=== PATIENT | female | born 1980 | race Caucasian/White ===

== ENCOUNTER 2018-06-18 17:55 | Emergency (ER) | payer MEDICAID ==
[2018-06-18 18:05] VITALS: BP 112/75
--- NOTE | 2018-06-18 18:28 | XRAY Report ---
Reason: knee pain Procedure Date: 06/18/2018 Accession Number: [id number] / [id number] Procedure: XR - Knee 3 View RT CPT Code: FULL RESULT: EXAM: RIGHT KNEE RADIOGRAPHY EXAM DATE: 06/18/2018 06:21 PM. CLINICAL HISTORY: Knee pain. Twisting fall. Pain worse when standing. COMPARISON: None. TECHNIQUE: 3 views. FINDINGS: Bones: No acute fracture or bony lesion. Degenerative spurring. Joints: Moderate right knee effusion. No significant joint space narrowing. No dislocation. Soft Tissues: Soft tissue edema. IMPRESSION: 1. No acute osseous abnormalities. 2. Right knee effusion. RADIA
[2018-06-18] MEDS ORDERED: NAPROXEN 250 MG TABLET PO STA (18:36)
--- NOTE | 2018-06-18 18:39 | ED Physician Documentation ---
PD HPI LOWER EXT INJURY - Stated complaint Stated Complaint: RIGHT KNEE PX - Chief complaint Chief Complaint: Ext Problem - History obtained from History obtained from: Patient - History of Present Illness PD HPI LOW EXT INJURY LOCATION: Right, Knee Type of injury: Twist Where injury occurred: Home Timing - onset: How many days ago (4) Timing - details: Abrupt onset Severity Comments: moderate Improved by: Rest, Immobilization Worsened by: Moving Associated symptoms: Swelling. No: Numbness, Tingling, Discolored Contributing factors: No: Anticoagulated Recently seen: Not recently seen Review of Systems Constitutional: denies: Fever Eyes: denies: Discharge Cardiac: denies: Chest pain / pressure GI: denies: Abdominal Pain Musculoskeletal: reports: Extremity pain. denies: Neck pain Neurologic: denies: Headache PD PAST MEDICAL HISTORY - Past Medical History Past Medical History: No Cardiovascular: None Respiratory: None Neuro: None Endocrine/Autoimmune: None GI: None MOSAIC LAYER: None : None HEENT: None Psych: None Musculoskeletal: None Derm: None - Past Surgical History Past Surgical History: Yes /MOSAIC LAYER: Dilation and currettage - Present Medications Home Medications: Ambulatory Orders Medication Instructions Recorded Confirmed Citalopram [CeleXA] 40 mg PO DAILY 06/18/18 06/18/18 buPROPion [Wellbutrin Sr] 150 mg PO BID 06/18/18 06/18/18 - Allergies Allergies/Adverse Reactions: Allergies Allergy/AdvReac Type Severity Reaction Status Date / Time No Known Drug Allergies Allergy Verified 06/18/18 18:00 - Social History Does the pt smoke?: Yes Smoking Status: Current every day smoker Does the pt drink ETOH?: No Does the pt have substance abuse?: No - Immunizations Immunizations are current?: Yes - POLST Patient has POLST: No PD ED PE NORMAL - General General: Alert and oriented X 3, No acute distress - HEENT HEENT: Atraumatic, PERRL, EOMI, Ears normal - Derm Derm: Normal color - Extremities Extremities: No deformity. No: No tenderness to palpate (The patient has tenderness to palpation of the knee, there is some mild swelling, a full exam is limited secondary to the acute pain and swelling. The patient has a normal dorsalis pedis pulse. There is no crepitus or evidence of bony abnormality. No other area of injury), Normal ROM s pain - Neuro Neuro: Alert and oriented X 3, Normal speech Results - Vitals Vitals: Vital Signs - 24 hr 06/18/18 17:58 Temperature 36.5 C Heart Rate 65 Respiratory 18 Rate Blood Pressure 112/75 O2 Saturation 99 Oxygen O2 Source Room air - Rads (name of study) XR knee Radiology: Final report received, See rad report (1. No acute osseous abnormalities. +effusion) PD MEDICAL DECISION MAKING - ED course ED course: No acute finding on x-ray that would necessitate emergent consultation or transfer. The exam was limited secondary to the swelling and acute pain. I discussed the patient the possibility of a ligamentous or meniscus injury and advised follow-up with orthopedics for recheck once the pain and swelling has decreased. The patient understands and agrees. I discussed warning signs and recommended returning for any worsening or any concerns. Departure - Departure Disposition: 01 Home, Self Care Clinical Impression: Sprain, knee Qualifiers: Encounter type: initial encounter Involved ligament of knee: unspecified ligament Laterality: right Qualified Code(s): S83.91XA - Sprain of unspecified site of right knee, initial encounter Condition: Good Instructions: ED Sprain Knee Follow-Up: [facility] [Provider Group] - Within 1 week (Call to schedule follow-up appointment for 1-2 weeks for recheck and reevaluation of your knee) Comments: Return to the emergency department for any worsening or any concerns
== END 2018-06-18 19:02 | disposition home or self-care (01) ==
LOC: ED 17:55
DX: S83.91XA Sprain of unspecified site of right knee, initial encounter (principal); X50.1XXA Overexertion from prolonged static or awkward postures, initial encounter; W01.0XXA Fall on same level from slipping, tripping and stumbling without subsequent striking against object, initial encounter; Y92.009 Unspecified place in unspecified non-institutional (private) residence as the place of occurrence of the external cause; F17.200 Nicotine dependence, unspecified, uncomplicated
CPT/HCPCS: 73562; 99283; A9270

== ENCOUNTER 2018-08-23 16:20 | Emergency (ER) | payer MEDICAID ==
--- NOTE | 2018-08-23 19:41 | ED Physician Documentation ---
PD HPI BACK PAIN - Stated complaint Stated Complaint: BACK PAIN - Chief complaint Chief Complaint: Back Pain - History obtained from History obtained from: Patient - History of Present Illness Timing - onset: How many hours ago (few), Today Timing - duration: Hours Timing - details: Abrupt onset (just got up from sitting and had onset of left then both sides back pain. Hurts with movement. No radiation to abd. Better with holding still.), Still present Location: Lower, Right, Left Quality: Pain, Spasm Associated symptoms: No: Fever, Weakness, Numbness, Incontinent of urine Improves with: Rest (but still hurts), Position Worsened by: Movement, Twisting Contributing factors: Twisting Similar symptoms before: No diagnosis Review of Systems Constitutional: denies: Fever, Chills Nose: denies: Rhinorrhea / runny nose, Congestion Throat: denies: Sore throat Respiratory: denies: Cough GI: denies: Abdominal Pain, Nausea, Vomiting, Diarrhea Skin: denies: Rash, Lesions Musculoskeletal: reports: Back pain. denies: Neck pain Neurologic: denies: Focal weakness, Numbness PD PAST MEDICAL HISTORY - Past Medical History Past Medical History: No Cardiovascular: None Respiratory: None Neuro: None Endocrine/Autoimmune: None GI: None EMR SPECIALIST: None : None HEENT: None Psych: None Musculoskeletal: None Derm: None - Past Surgical History Past Surgical History: Yes /EMR SPECIALIST: Dilation and currettage - Present Medications Home Medications: Ambulatory Orders Medication Instructions Recorded Confirmed Dexamethasone [Decadron] 4 mg PO DAILY #5 tablet 08/23/18 Methocarbamol [Robaxin] 500 mg PO Q6H PRN #30 tablet 08/23/18 Naproxen 500 mg PO BID #20 tablet 08/23/18 Oxycodone HCl/Acetaminophen 1 - 2 each PO Q6H PRN #14 tablet 08/23/18 [Percocet 5-325 mg Tablet] - Allergies Allergies/Adverse Reactions: Allergies Allergy/AdvReac Type Severity Reaction Status Date / Time No Known Drug Allergies Allergy Verified 08/23/18 16:29 - Social History Does the pt smoke?: Yes Smoking Status: Current every day smoker Does the pt drink ETOH?: No Does the pt have substance abuse?: No - Immunizations Immunizations are current?: Yes - POLST Patient has POLST: No PD ED PE NORMAL - Vitals Vital signs reviewed: Yes - General General: Alert and oriented X 3, Well developed/nourished, Other (appears in pain, and guarding ROM. ) - Neck Neck: Supple, no meningeal sign, No adenopathy - Cardiac Cardiac: RRR, No murmur - Respiratory Respiratory: Clear bilaterally - Abdomen Abdomen: Soft, Non tender - Back Back: No spinal TTP, Other (tender in lumbar muscles, with some firm spasm. No vertebral tenderness. Not tender as high as CVA area. Abd soft and not tender. ) Results - Vitals Vitals: Oxygen O2 Source Room air PD MEDICAL DECISION MAKING - ED course Complexity details: re-evaluated patient (improved quite well after meds. ), considered differential (seems muscular. Does not seem kidney stone. Abd not tender. Will treat as muscular with spasm. ) Departure - Departure Disposition: 01 Home, Self Care Clinical Impression: Back pain Qualifiers: Back pain location: low back pain Chronicity: acute Back pain laterality: bilateral Sciatica presence: without sciatica Qualified Code(s): M54.5 - Low back pain Condition: Stable Record reviewed to determine appropriate education?: Yes Instructions: ED Spasm Back No Trauma Prescriptions: Dexamethasone [Decadron] 4 mg PO DAILY #5 tablet Methocarbamol [Robaxin] 500 mg PO Q6H PRN #30 tablet PRN Reason: Spasms Naproxen 500 mg PO BID #20 tablet Oxycodone HCl/Acetaminophen [Percocet 5-325 mg Tablet] 1 - 2 each PO Q6H PRN #14 tablet PRN Reason: pain Comments: Heat and gentle stretching for the low back muscles. Physical modalities such as chiropractic or massage are okay for this in conjunction with the medications. Use some anti-inflammatories such as naproxen or ibuprofen twice daily. Decadron steroid anti-inflammatory as well for 5 days. Cyclobenzaprine or methocarbamol muscle relaxants as needed for spasming and stiffness. Add Tylenol or oxycodone if needed for pain. Recheck if not improved over the next several days. You may need a day or 2 off work based on symptoms. Forms: Activity restrictions Discharge Date/Time: 08/23/18 20:57
[2018-08-23] MEDS ORDERED: HYDROmorphone 1 MG/ML CARPUJECT IM STA (19:51)
[2018-08-23] MEDS ORDERED: METHOCARBAMOL 500 MG TABLET PO STA (19:52)
[2018-08-23] MEDS ORDERED: DEXAMETHASONE 10 MG/ML VIAL PO STA (19:52)
[2018-08-23] MEDS ORDERED: KETOROLAC 30 MG/ML VIAL IM STA (19:52)
[2018-08-23] MEDS ORDERED: CHERRY SYRUP 10 ML UDC PO ONE (20:09)
[2018-08-23] MEDS ORDERED: CYCLOBENZAPRINE 10 MG Prepack 2 PO PRN (20:42)
[2018-08-23] MEDS ORDERED: oxyCODONE/ACET 5/325 Prepack 4 PO STA (20:42)
[2018-08-23 20:55] VITALS: BP 114/69
== END 2018-08-23 20:57 | disposition home or self-care (01) ==
LOC: ED 16:20
DX: M54.5 Low back pain (principal); F17.200 Nicotine dependence, unspecified, uncomplicated
CPT/HCPCS: 96372; 99283; A9270; J1170

== ENCOUNTER 2018-08-30 12:47 | Emergency (ER) | payer MEDICAID ==
[2018-08-30 13:07] VITALS: BP 124/81
--- NOTE | 2018-08-30 13:28 | ED Physician Documentation ---
History of Present Illness - Stated complaint Stated Complaint: LT EYE SWOLLEN - Chief complaint Chief Complaint: Heent - History obtained from History obtained from: Patient - History of Present Illness Timing: Last night - Additonal information Additional information: Patient is a previously healthy 38-year-old female presenting with left upper eyelid swelling, erythema, and purulent discharge worsening over the past few hours, but starting last night. Patient does not wear contacts, but wears glasses only. Patient denies known trauma, inciting incident, retained foreign body sensation or other exposure. Patient reports slight decrease in vision due to eyelid swelling, but no eye pain. Patient also denies conjunctival irritation or changes. Patient also complains of persistent low back pain, which she was seen for in the ED several days ago. Patient denies new injuries or symptoms except for discomfort. No new rashes, neurological changes, or other concerns. Patient has been taking medications as prescribed at home for this issue. No other improving or worsening factors noted to her symptoms. Review of Systems Eyes: reports: Decreased vision, Discharge PD PAST MEDICAL HISTORY - Past Medical History Cardiovascular: None Respiratory: None Neuro: None Endocrine/Autoimmune: None GI: None SEWING MACHINE ADJUSTER: None : None HEENT: None Psych: None Musculoskeletal: None Derm: None - Past Surgical History Past Surgical History: Yes /SEWING MACHINE ADJUSTER: Dilation and currettage - Present Medications Home Medications: Ambulatory Orders Medication Instructions Recorded Confirmed Dexamethasone [Decadron] 4 mg PO DAILY #5 tablet 08/23/18 Methocarbamol [Robaxin] 500 mg PO Q6H PRN #30 tablet 08/23/18 Naproxen 500 mg PO BID #20 tablet 08/23/18 Oxycodone HCl/Acetaminophen 1 - 2 each PO Q6H PRN #14 tablet 08/23/18 [Percocet 5-325 mg Tablet] Erythromycin Base [Erythromycin 3.5 gm OP QID 14 Days #1 oint...g. 08/30/18 Ophthalmic Ointment] - Allergies Allergies/Adverse Reactions: Allergies Allergy/AdvReac Type Severity Reaction Status Date / Time No Known Drug Allergies Allergy Verified 08/30/18 13:02 - Social History Does the pt smoke?: Yes Smoking Status: Current every day smoker Does the pt drink ETOH?: No Does the pt have substance abuse?: No - Immunizations Immunizations are current?: Yes - POLST Patient has POLST: No PD ED PE NORMAL - General General: Alert and oriented X 3, No acute distress, Well developed/nourished - HEENT HEENT: Atraumatic, PERRL (Gross visual acuity intact. No nystagmus. No conjunctival injection or hematoma.), EOMI, Moist mucous membranes, Pharynx benign, Other (Edema and slight erythema to left upper eyelid only with purulent discharge from the upper eyelid duct) - Respiratory Respiratory: No respiratory distress - Back Back: No spinal TTP, Other (Extremely mild lumbar paraspinal muscle tenderness and spasm present) - Derm Derm: Normal color, Warm and dry, No rash - Extremities Extremities: No deformity - Neuro Neuro: Alert and oriented X 3, No motor deficit, No sensory deficit - Psych Psych: Normal mood, Normal affect Results - Vitals Vitals: Vital Signs - 24 hr 08/30/18 13:02 Temperature 36.6 C Heart Rate 87 Respiratory 16 Rate Blood Pressure 124/81 H O2 Saturation 100 Oxygen O2 Source Room air PD MEDICAL DECISION MAKING - ED course Complexity details: reviewed old records, considered differential, d/w patient, d/w family ED course: Most concerning for a blepharitis of left eye. Do not find evidence of trauma or subconjunctival hemorrhage or hyphema present. Do not have high suspicion for. Post septal cellulitis, as well as low suspicion for periorbital cellulitis given appearance and symptomatology. No signs of conjunctivitis, iritis, uveitis, glaucoma, or other globe injury. Discussed use of antibiotics for her likely blepharitis, as well as supportive cares. Patient was seen here recently for low back strain and continues to have some discomfort. Do not find evidence of new injury or other concerns I would raise high suspicion for new spine, spinal cord, cauda equina, sciatica complication. Offered Toradol, which was provided in ED. Otherwise, patient can continue supportive cares at home. Discussed return symptoms and appropriate follow-up otherwise. Patient voiced understanding and is comfortable with discharge plan. Departure - Departure Disposition: 01 Home, Self Care Clinical Impression: Blepharitis Qualifiers: Blepharitis type: unspecified type Laterality: left Eyelid: upper Qualified Code(s): H01.004 - Unspecified blepharitis left upper eyelid Condition: Good Instructions: Blepharitis Tx Med and FU Follow-Up: your,doctor [Other] - Within 3 Days Prescriptions: Erythromycin Base [Erythromycin Ophthalmic Ointment] 3.5 gm OP QID 14 Days #1 oint...g. Comments: May continue to use previously prescribed medications for low back pain. Also recommend heat application, mild stretching, massage to this area. In regards to your eye, please use antibiotic ointment as prescribed. Additionally, recommend cool compresses and sleeping slightly propped up. Ibuprofen/Tylenol will also address this inflammation. Follow-up with primary care physician in the next 2-3 days return to ED sooner if expands worsening symptoms or other concerns.
[2018-08-30] MEDS ORDERED: KETOROLAC 60 MG/2 ML VIAL IM STA (13:45)
== END 2018-08-30 14:12 | disposition home or self-care (01) ==
LOC: ED 12:47
DX: H01.004 Unspecified blepharitis left upper eyelid (principal); F17.200 Nicotine dependence, unspecified, uncomplicated
CPT/HCPCS: 96372; 99283

== ENCOUNTER 2020-05-27 13:07 | Emergency (ER) | payer MEDICAID ==
[2020-05-27 13:45] LABS: BASOPHILS # (AUTO) 0.1 10^3/uL (0.0-0.1); BASOPHILS % (AUTO) 0.4 %; EOSINOPHILS # (AUTO) 0.1 10^3/uL (0.0-0.7); EOSINOPHILS % (AUTO) 0.4 %; HGB - HEMOGLOBIN 14.5 g/dL (12.0-16.0); LYMPHOCYTES # (AUTO) 1.9 10^3/uL (1.5-3.5); LYMPHOCYTES % (AUTO) 13.6 %; MEAN CORPUSCULAR HEMOGLOBIN 28.5 pg (27.0-31.0); MEAN CORPUSCULAR HGB CONC 33.5 g/dL (32.0-36.0); MEAN CORPUSCULAR VOLUME 85.2 fL (81.0-99.0); MONOCYTES # (AUTO) 0.8 10^3/uL (0.0-1.0); MONOCYTES % (AUTO) 5.5 %; NEUTROPHILS # (AUTO) 10.9 10^3/uL (1.5-6.6); NEUTROPHILS % (AUTO) 79.7 %; PLT - PLATELET COUNT 268 10^3/uL (130-450); RED BLOOD COUNT 5.08 10^6/uL (4.20-5.40); RED CELL DISTRIBUTION WIDTH 12.3 % (12.0-15.0); WHITE BLOOD COUNT 13.7 x10^3/uL (4.8-10.8)
--- NOTE | 2020-05-27 13:48 | XRAY Report ---
PROCEDURE: Chest 1 View X-Ray INDICATIONS: Chest Pain TECHNIQUE: One view of the chest was acquired. COMPARISON: None. FINDINGS: Surgical changes and devices: None. Lungs and pleura: No pleural effusions or pneumothorax. Lungs are clear. Mediastinum: Mediastinal contours appear normal. Heart size is normal. Bones and chest wall: No suspicious bony lesions. Overlying soft tissues appear unremarkable. IMPRESSION: No acute disease Reviewed by: Stevie Brink MD on 05/27/2020 1:46 PM PST Approved by: Stevie Brink MD on 05/27/2020 1:46 PM PST Station ID: [id number]
[2020-05-27 14:04] LABS: ALBUMIN/GLOBULIN RATIO 1.6 (1.0-2.2); BILIRUBIN,TOTAL 0.9 mg/dL (0.2-1.0); CALCIUM 9.6 mg/dL (8.5-10.3); CREATININE 0.6 mg/dL (0.4-1.0); TOTAL PROTEIN 8.2 g/dL (6.7-8.2)
--- NOTE | 2020-05-27 14:05 | ED Physician Documentation ---
PD HPI CHEST PAIN - Stated complaint Stated Complaint: CHEST PX - Chief complaint Chief Complaint: Cardiac - History obtained from History obtained from: Patient - History of Present Illness Timing - onset: Today Timing - onset during: Rest Timing - duration: Hours Timing - details: Abrupt onset, Still present Quality: Sharp, Pain Location: Substernal Radiation: No: Jaw, Neck, Back, Abdominal, Left upper extremity, Right upper extremity Improved by: Nothing Worsened by: Inspiration, Movement, Palpation Associated symptoms: Shortness of air, Diaphoresis Similar symptoms before: Diagnosis (panic attack) Recently seen: Not recently seen - Additional information Additional information: 39-year-old female with a history of anxiety with sitting on her couch today when she developed sudden onset of substernal chest pain without radiation she did get some some dyspnea associated with this as well as some diaphoresis. She felt like it was difficult to get a full deep breath. She denies anything to be acutely anxious about but does have a history of anxiety and panic attacks. She denies any recent illness. She denies any specific stress in her life states that she and her and her son are living in an apartment and they have recently obtained a cat which they are not supposed to have. She states maybe she is looking over her shoulder. Review of Systems Constitutional: denies: Fever Nose: denies: Congestion Throat: denies: Sore throat Cardiac: reports: Chest pain / pressure. denies: Palpitations, Pedal edema, Calf pain Respiratory: reports: Dyspnea. denies: Cough, Wheezing GI: denies: Abdominal Pain, Nausea, Vomiting : denies: Dysuria, Frequency Neurologic: denies: Generalized weakness, Focal weakness, Numbness Psychiatric: reports: Anxiety PD PAST MEDICAL HISTORY - Past Medical History Cardiovascular: None Respiratory: None Neuro: None Endocrine/Autoimmune: None GI: None ALARM FIELD TECHNICIAN: None : None HEENT: None Psych: None Musculoskeletal: None Derm: None - Past Surgical History Past Surgical History: Yes /ALARM FIELD TECHNICIAN: Dilation and currettage - Present Medications Home Medications: Ambulatory Orders Medication Instructions Recorded Confirmed Alprazolam [Xanax] 0.5 - 1 mg PO Q8HR PRN #12 tablet 05/27/20 Meloxicam [Mobic] 7.5 mg PO BID PRN #20 tablet 05/27/20 - Allergies Allergies/Adverse Reactions: Allergies Allergy/AdvReac Type Severity Reaction Status Date / Time No Known Drug Allergies Allergy Verified 05/27/20 13:19 - Social History Does the pt smoke?: Yes Smoking Status: Current every day smoker Does the pt drink ETOH?: No Does the pt have substance abuse?: No - Immunizations Immunizations are current?: Yes - POLST Patient has POLST: No PD ED PE NORMAL - Vitals Vital signs reviewed: Yes (Tachypneic and hypertensive) - General General: Alert and oriented X 3, Well developed/nourished, Other (Appears anxious and is hyperventilating) - HEENT HEENT: Atraumatic, PERRL, EOMI - Neck Neck: Supple, no meningeal sign, No bony TTP - Cardiac Cardiac: RRR, No murmur - Respiratory Respiratory: No respiratory distress, Clear bilaterally, Other (Parasternal chest wall tenderness bilaterally reproduces the pain the patient is experiencing.) - Abdomen Abdomen: Soft, Non tender - Back Back: No CVA TTP, No spinal TTP - Derm Derm: Normal color, Warm and dry, No rash - Extremities Extremities: No deformity, No edema - Neuro Neuro: Alert and oriented X 3, ceo 2-12 intact, No motor deficit, No sensory deficit, Normal speech Eye Opening: Spontaneous Motor: Obeys Commands Verbal: Oriented GCS Score: 15 - Psych Psych: Other (Mood is anxious affect is sad) Results - Vitals Vitals: Vital Signs - 24 hr 05/27/20 13:19 Temperature 36.8 C Heart Rate 80 Respiratory 24 Rate Blood Pressure 142/86 H O2 Saturation 100 Oxygen O2 Source Room air - EKG (time done) 1320 Rate: Rate (enter#) (78) Rhythm: NSR Intervals: Prolonged QT Computer interpretation: Agree with computer - Labs Labs: Laboratory Tests 05/27/20 05/27/20 05/27/20 13:39 13:39 13:39 WBC 13.7 H RBC 5.08 Hgb 14.5 Hct 43.3 MCV 85.2 MCH 28.5 MCHC 33.5 RDW 12.3 Plt Count 268 MPV 9.0 Neut # (Auto) 10.9 H Lymph # (Auto) 1.9 [place] # (Auto) 0.8 Eos # (Auto) 0.1 Baso # (Auto) 0.1 Absolute Nucleated RBC 0.00 Nucleated RBC % 0.0 Sodium 136 Potassium 3.2 L Chloride 103 Carbon Dioxide 23 Anion Gap 10.0 BUN 10 Creatinine 0.6 Estimated GFR (MDRD) 112 Glucose 83 Calcium 9.6 Total Bilirubin 0.9 AST 18 ALT 13 Alkaline Phosphatase 39 L Troponin I High Sens < 2.3 L Total Protein 8.2 Albumin 5.0 Globulin 3.2 Albumin/Globulin Ratio 1.6 Lipase 36 - Rads (name of study) chest Radiology: Prelim report reviewed (Skin: No acute disease.), EMP read indepedently, See rad report PD MEDICAL DECISION MAKING - ED course Complexity details: reviewed old records, reviewed results, re-evaluated patient, considered differential, d/w patient ED course: 39-year-old female with a history of anxiety presents to the emergency department with acute anterior chest pain which is reproducible by palpation of the chest wall and the patient appears quite anxious. Her electrocardiogram is remarkable only for a prolonged QT interval and she is hypokalemic. She is administered oral potassium and she is treated for costochondritis with dexamethasone and Toradol. She is additionally treated for anxiety with Ativan orally. On re-evaluation the patient is markedly improved and acknowledges anxiety as central to her presentation. Departure - Departure Disposition: 01 Home, Self Care Clinical Impression: Chest wall pain, Anxiety Condition: Stable Instructions: ED Chest Pain Costochondritis, ED Panic Attack Follow-Up: [facility] [Provider Group] Prescriptions: Alprazolam [Xanax] 0.5 - 1 mg PO Q8HR PRN #12 tablet PRN Reason: Anxiety Meloxicam [Mobic] 7.5 mg PO BID PRN #20 tablet PRN Reason: Pain
[2020-05-27] MEDS ORDERED: POTASSIUM CHLORIDE 20 MEQ TABLET PO STA (14:18)
[2020-05-27] MEDS ORDERED: DEXAMETHASONE 10 MG/ML VIAL PO STA (14:19)
[2020-05-27] MEDS ORDERED: LORazepam 1 MG TABLET PO STA (14:19)
[2020-05-27] MEDS ORDERED: CHERRY SYRUP 10 ML UDC PO ONE (14:19)
[2020-05-27] MEDS ORDERED: KETOROLAC 60 MG/2 ML VIAL IM STA (14:19)
[2020-05-27 15:06] VITALS: BP 118/80
== END 2020-05-27 15:26 | disposition home or self-care (01) ==
LOC: ED 13:07
DX: E87.6 Hypokalemia (principal); M94.0 Chondrocostal junction syndrome [Tietze]; F41.9 Anxiety disorder, unspecified; F17.200 Nicotine dependence, unspecified, uncomplicated
CPT/HCPCS: 36415; 71045; 80053; 83690; 84484; 85025; 93005; 96372; 99284; A9270; J8499

== ENCOUNTER 2020-06-11 17:22 | Emergency (ER) | payer MEDICAID ==
[2020-06-11] MEDS ORDERED: BACITRACIN ZINC OINT 1 PACKET TOP STA (17:59)
[2020-06-11] MEDS ORDERED: BUFFERED LIDOCAINE 10 ML SYRINGE SUBQ STA (17:59)
--- NOTE | 2020-06-11 18:30 | ED Physician Documentation ---
History of Present Illness - Stated complaint Stated Complaint: RT THUMB LAC - Chief complaint Chief Complaint: Laceration - Additonal information Additional information: 9-year-old female presents to the emergency department for evaluation of a right thumb laceration. Sustained the laceration when placing trash into her garbage bin at home. She thinks that she may have cut her thumb on a 10 food container. Last tetanus 2017. Patient is right-hand dominant. Patient did have a recent ED visit for chest pain and anxiety attack Review of Systems Constitutional: reports: Reviewed and negative Eyes: reports: Reviewed and negative Nose: reports: Reviewed and negative Throat: reports: Reviewed and negative Cardiac: reports: Reviewed and negative Respiratory: reports: Reviewed and negative GI: reports: Reviewed and negative : reports: Reviewed and negative Skin: reports: Laceration (s) (Right thumb) Musculoskeletal: reports: Reviewed and negative PD PAST MEDICAL HISTORY - Past Medical History Past Medical History: Yes Cardiovascular: None Respiratory: None Neuro: None Endocrine/Autoimmune: None GI: None SERGEANT MISSILE CREWMAN: None : None HEENT: None Psych: None Musculoskeletal: None Derm: None - Past Surgical History Past Surgical History: Yes /SERGEANT MISSILE CREWMAN: Dilation and currettage - Present Medications Home Medications: Ambulatory Orders Medication Instructions Recorded Confirmed Alprazolam [Xanax] 0.5 - 1 mg PO Q8HR PRN #12 tablet 05/27/20 Meloxicam [Mobic] 7.5 mg PO BID PRN #20 tablet 05/27/20 Ibuprofen [Motrin] 600 mg PO Q6H PRN #30 tab 06/11/20 - Allergies Allergies/Adverse Reactions: Allergies Allergy/AdvReac Type Severity Reaction Status Date / Time No Known Drug Allergies Allergy Verified 06/11/20 17:33 - Social History Does the pt smoke?: Yes Smoking Status: Current every day smoker Does the pt drink ETOH?: No Does the pt have substance abuse?: No - Immunizations Immunizations are current?: Yes - POLST Patient has POLST: No PD ED PE EXPANDED - General General: Alert, No acute distress, Anxious - Extremities Extremities: Right finger(s) (3 cm laceration right thumb radial side between MCP and DIP joint. Normal distal flexion and extension. Preserved sensation.) Results - Vitals Vitals: Vital Signs - 24 hr 06/11/20 17:29 Temperature 36.9 C Heart Rate 96 Respiratory 18 Rate Blood Pressure 127/86 H O2 Saturation 99 Oxygen O2 Source Room air Procedures - Laceration (location) right thumb Length in cm: 3 Neurovascular status: Sensory intact, Motor intact, Vascular intact Tendon involvement: Tendon intact Anesthesia: Lidocaine 1% Wound Preparation: Chlorhexadine, Irrigated copiously NS Skin layer closure: Interrupted, Size #-0 - enter number (4), Sutures - enter # (6) Other: Patient tolerated well, No complications, Neurovascular intact Complexity: Simple PD MEDICAL DECISION MAKING - ED course Complexity details: considered differential, d/w patient ED course: 39-year-old female presents the emergency department for a right thumb laceration sustained when at home. Wound was closed easily with 6 sutures. Routine wound care and emergent return precautions for concerns of infection discussed. Patient's tetanus is currently up-to-date Departure - Departure Disposition: 01 Home, Self Care Clinical Impression: Laceration of right thumb Qualifiers: Encounter type: initial encounter Damage to nail status: without damage Foreign body presence: without foreign body Qualified Code(s): S61.011A - Laceration without foreign body of right thumb without damage to nail, initial encounter Condition: Stable Record reviewed to determine appropriate education?: Yes Instructions: ED Laceration Hand Prescriptions: Ibuprofen [Motrin] 600 mg PO Q6H PRN #30 tab PRN Reason: Pain Comments: Your suture should be removed in 7 to 10 days. In 24 hours you may remove the dressing wash gently with warm soap and water, apply any antibiotic ointment and a simple bandage. Your tetanus is up-to-date. Please attempt to keep your wound clean and dry. Do not submerge it in dirty dishwater or bath water. Return to the emergency department if you have any concerns of infection such as redness, fevers milky drainage increased pain.
[2020-06-11] MEDS ORDERED: IBUPROFEN 600 MG TABLET PO STA (18:32)
[2020-06-11] MEDS ORDERED: LORazepam 2 MG/ML VIAL IM STA (18:38)
[2020-06-11 18:44] VITALS: BP 131/85
--- OUTSIDE RECORDS SUMMARY | 2020-06-12 04:54 | EXTERNAL MEDICAL SUMMARY RPT | Continuity of Care Document ---
:1980 Demographics Phone Unavailable Preferred Language Unknown Marital Status Unknown Presybeterian Affiliation Unknown Race Unknown Ethnic Group Unknown Author Organization [place] Address [address] [phone] Phone Support Name Relationship Address Phone SHORT STOP Unavailable Unavailable Unavailable Problems date description facility 2018-06-18 17:55 NICOTINE DEPENDENCE, UNSPECIFIED, [facility] UNCOMPLICATED 2018-06-18 17:55 PAIN IN RIGHT KNEE [facility] 2018-06-18 17:55 SPRAIN OF UNSPECIFIED SITE OF [facility] RIGHT KNEE, INITIAL ENCOUNTER 2018-06-18 17:55 FALL SAME LEV FROM SLIP/TRIP W/O [facility] STRIKE AGAINST OBJECT, INIT 2018-06-18 17:55 OVEREXERTION FROM PROLONGED STATIC [facility] OR AWKWARD POSTURES, INIT 2018-06-18 17:[address] IN UNSP NON-INSTITUT [facility] (PRIVATE) RESIDENCE PLACE 2018-08-23 16:20 NICOTINE DEPENDENCE, UNSPECIFIED, [facility] UNCOMPLICATED 2018-08-23 16:20 LOW BACK PAIN [facility] 2018-08-23 16:20 DORSALGIA, UNSPECIFIED [facility] 2018-08-30 12:47 NICOTINE DEPENDENCE, UNSPECIFIED, [facility] UNCOMPLICATED 2018-08-30 12:47 UNSPECIFIED BLEPHARITIS LEFT UPPER [facility] EYELID 2018-08-30 12:47 OTHER SPECIFIED DISORDERS OF EYE [facility] AND ADNEXA 2020-05-27 13:07 HYPOKALEMIA [facility] 2020-05-27 13:07 NICOTINE DEPENDENCE, UNSPECIFIED, [facility] UNCOMPLICATED 2020-05-27 13:07 ANXIETY DISORDER, UNSPECIFIED [facility] 2020-05-27 13:07 CHONDROCOSTAL JUNCTION SYNDROME [facility] [TIETZE] Allergies date description facility AMPICILLIN [facility] CODEINE [facility] SULFAMETHOXAZOLE-TRIMETHOPRIM [facility] PENICILLINS [facility] SULFA ANTIBIOTICS [facility] STREPTOKINASE [facility] IODINE AND IODIDE CONTAINING PRODUCTS [facility] PENICILLINS [facility] NO KNOWN ALLERGIES [facility] FOOD [facility] CODEINE [facility] OXYCODONE [facility] ACETAMINOPHEN [facility] TRAMADOL [facility] IODINE [facility] LATEX [facility] No Known Drug Allergies [facility] fluoxetine [facility] sertraline [facility] Results Social History date description facility [phone]
== END 2020-06-11 19:05 | disposition home or self-care (01) ==
LOC: ED 17:22
DX: S61.011A Laceration without foreign body of right thumb without damage to nail, initial encounter (principal); W26.9XXA Contact with unspecified sharp object(s), initial encounter; Y93.E9 Activity, other interior property and clothing maintenance; Y92.009 Unspecified place in unspecified non-institutional (private) residence as the place of occurrence of the external cause; F41.0 Panic disorder [episodic paroxysmal anxiety]; F17.200 Nicotine dependence, unspecified, uncomplicated
CPT/HCPCS: 12002; 96372; 99283; A9270; J2060

== ENCOUNTER 2021-03-07 18:04 | Emergency (ER) | payer MEDICAID ==
[2021-03-07 18:22] VITALS: BP 158/74
[2021-03-07] MEDS ORDERED: AMOX/CLAV 875 MG/125 MG TABLET PO STA (18:50)
[2021-03-07] MEDS ORDERED: HYDROcod/ACETAM 5/325 MG TABLET PO STA (18:50)
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
== END 2021-03-07 19:01 | disposition home or self-care (01) ==
LOC: ED 18:04
DX: S31.815A Open bite of right buttock, initial encounter (principal); W54.0XXA Bitten by dog, initial encounter; S20.311A Abrasion of right front wall of thorax, initial encounter; S30.811A Abrasion of abdominal wall, initial encounter; W54.8XXA Other contact with dog, initial encounter; Y93.01 Activity, walking, marching and hiking; F17.200 Nicotine dependence, unspecified, uncomplicated
CPT/HCPCS: 99282; A9270

== ENCOUNTER 2021-09-05 16:39 | Emergency (ER) | payer MEDICAID ==
[2021-09-05 16:55] VITALS: BP 145/87
[2021-09-05 18:57] LABS: HCG,QUALITATIVE BLOOD NEGATIVE
[2021-09-05] MEDS ORDERED: KETOROLAC 60 MG/2 ML VIAL IM STA (19:48)
[2021-09-05] MEDS ORDERED: ONDANSETRON ODT 4 MG TABLET TL STA (19:48)
[2021-09-05 19:50] LABS: BASOPHILS # (AUTO) 0.1 10^3/uL (0.0-0.1); BASOPHILS % (AUTO) 0.6 %; EOSINOPHILS # (AUTO) 0.1 10^3/uL (0.0-0.7); EOSINOPHILS % (AUTO) 0.8 %; HCT - HEMATOCRIT 39.7 % (37.0-47.0); HGB - HEMOGLOBIN 13.6 g/dL (12.0-16.0); LYMPHOCYTES # (AUTO) 3.1 10^3/uL (1.5-3.5); LYMPHOCYTES % (AUTO) 34.4 %; MEAN CORPUSCULAR HEMOGLOBIN 28.9 pg (27.0-31.0); MEAN CORPUSCULAR HGB CONC 34.3 g/dL (32.0-36.0); MEAN CORPUSCULAR VOLUME 84.3 fL (81.0-99.0); MEAN PLATELET VOLUME 9.5 fL (7.9-10.8); MONOCYTES # (AUTO) 0.6 10^3/uL (0.0-1.0); NEUTROPHILS # (AUTO) 5.2 10^3/uL (1.5-6.6); PLT - PLATELET COUNT 252 10^3/uL (130-450); RED BLOOD COUNT 4.71 10^6/uL (4.20-5.40); RED CELL DISTRIBUTION WIDTH 12.2 % (12.0-15.0)
[2021-09-05 19:58] LABS: ALBUMIN 4.8 g/dL (3.2-5.5); ALBUMIN/GLOBULIN RATIO 1.4 (1.0-2.2); BILIRUBIN,TOTAL 0.7 mg/dL (0.2-1.0); CALCIUM 9.6 mg/dL (8.5-10.3); CREATININE 0.6 mg/dL (0.4-1.0); POTASSIUM 3.7 mmol/L (3.5-5.0); TOTAL PROTEIN 8.2 g/dL (6.7-8.2)
--- NOTE | 2021-09-05 19:58 | ED Physician Documentation ---
PD HPI BACK PAIN - Stated complaint Stated Complaint: BACK PX/NAUSEA - Chief complaint Chief Complaint: Back Pain - History obtained from History obtained from: Patient - Additional information Additional information: Patient is a 41 -year-old female with no significant past medical history presenting for evaluation of right flank pain. Pain started on Wednesday was dull and aching at that time. It seemed improved yesterday but worsened again today. She denies any recent injuries but does note working as a hospital housekeeper. Pain is now radiating to the right side.She does endorse that movements seem to make it worse but she feels the pain also at rest. Nothing seems to make it feel better. She did try heat without any relief. Denies previous back issues in this area. Denies fever, chest pain, difficulty breathing, vomiting, diarrhea, dysuria, hematuria, vaginal bleeding or discharge. Review of Systems Constitutional: denies: Fever Nose: denies: Congestion Cardiac: denies: Chest pain / pressure, Palpitations Respiratory: denies: Dyspnea, Cough GI: reports: Abdominal Pain, Nausea. denies: Vomiting, Diarrhea, Bloody / black stool : denies: Dysuria, Hematuria Musculoskeletal: reports: Back pain Neurologic: denies: Headache PD PAST MEDICAL HISTORY - Past Medical History Cardiovascular: None Respiratory: None Neuro: None Endocrine/Autoimmune: None GI: None FIRE EATER: None : None HEENT: None Psych: None Musculoskeletal: None Derm: None - Past Surgical History Past Surgical History: Yes /FIRE EATER: Dilation and currettage - Present Medications Home Medications: Ambulatory Orders Medication Instructions Recorded Confirmed Alprazolam [Xanax] 0.5 - 1 mg PO Q8HR PRN #12 tablet 05/27/20 Meloxicam [Mobic] 7.5 mg PO BID PRN #20 tablet 05/27/20 Ibuprofen [Motrin] 600 mg PO Q6H PRN #30 tab 06/11/20 Amox/Clav 875/125 [Augmentin] 1 each PO Q12H #20 tablet 03/07/21 HYDROcod/ACETAM 5/325 [[place] 5/325] 1 tablet PO BID PRN #10 tablet 03/07/21 - Allergies Allergies/Adverse Reactions: Allergies Allergy/AdvReac Type Severity Reaction Status Date / Time No Known Drug Allergies Allergy Verified 09/05/21 16:54 - Social History Does the pt smoke?: Yes Smoking Status: Current every day smoker Does the pt drink ETOH?: No Does the pt have substance abuse?: No - Immunizations Immunizations are current?: Yes - POLST Patient has POLST: No PD ED PE NORMAL - General General: Alert and oriented X 3, No acute distress, Well developed/nourished - HEENT HEENT: Atraumatic, Moist mucous membranes - Neck Neck: Supple, no meningeal sign, No bony TTP - Cardiac Cardiac: RRR, Strong equal pulses - Respiratory Respiratory: No respiratory distress, Clear bilaterally - Abdomen Abdomen: Normal bowel sounds, Soft, Non tender (No reproducible tenderness), Non distended - Back Back: No CVA TTP, No spinal TTP - Derm Derm: Normal color, Warm and dry - Extremities Extremities: No deformity, No edema, Other (Intact distal pulses to bilateral lower extremities) - Neuro Neuro: Alert and oriented X 3, No motor deficit, Normal speech - Psych Psych: Normal mood, Normal affect Results - Vitals Vitals: Vital Signs - 24 hr 09/05/21 09/05/21 16:52 21:46 Temperature 36.4 C L Heart Rate 82 Respiratory 16 18 Rate Blood Pressure 145/87 H O2 Saturation 100 Oxygen O2 Source Room air - Labs Labs: Laboratory Tests 09/05/21 09/05/21 09/05/21 18:21 18:21 18:21 WBC 9.0 RBC 4.71 Hgb 13.6 Hct 39.7 MCV 84.3 MCH 28.9 MCHC 34.3 RDW 12.2 Plt Count 252 MPV 9.5 Neut # (Auto) 5.2 Lymph # (Auto) 3.1 [place] # (Auto) 0.6 Eos # (Auto) 0.1 Baso # (Auto) 0.1 Absolute Nucleated RBC 0.00 Nucleated RBC % 0.0 Sodium 135 Potassium 3.7 Chloride 99 L Carbon Dioxide 26 Anion Gap 10.0 BUN 14 Creatinine 0.6 Estimated GFR (MDRD) 111 Glucose 94 Calcium 9.6 Total Bilirubin 0.7 AST 16 ALT 11 Alkaline Phosphatase 35 L Total Protein 8.2 Albumin 4.8 Globulin 3.4 Albumin/Globulin Ratio 1.4 Lipase 33 Serum HCG, Qual NEGATIVE Urine Color Urine Clarity Urine pH Ur Specific [place] Urine Protein Urine Glucose (UA) Urine Ketones Urine Occult Blood Urine Nitrite Urine Bilirubin Urine Urobilinogen Ur Leukocyte Esterase Urine RBC Urine WBC Ur Squamous Epith Cells Urine Bacteria Ur Microscopic Review Urine Culture Comments 09/05/21 20:48 WBC RBC Hgb Hct MCV MCH MCHC RDW Plt Count MPV Neut # (Auto) Lymph # (Auto) [place] # (Auto) Eos # (Auto) Baso # (Auto) Absolute Nucleated RBC Nucleated RBC % Sodium Potassium Chloride Carbon Dioxide Anion Gap BUN Creatinine Estimated GFR (MDRD) Glucose Calcium Total Bilirubin AST ALT Alkaline Phosphatase Total Protein Albumin Globulin Albumin/Globulin Ratio Lipase Serum HCG, Qual Urine Color YELLOW Urine Clarity CLEAR Urine pH 6.5 Ur Specific [place] 1.010 Urine Protein NEGATIVE Urine Glucose (UA) NEGATIVE Urine Ketones 15 H Urine Occult Blood SMALL H Urine Nitrite NEGATIVE Urine Bilirubin NEGATIVE Urine Urobilinogen 0.2 (NORMAL) Ur Leukocyte Esterase TRACE H Urine RBC 0-5 Urine WBC 4-5 Ur Squamous Epith Cells MANY Squamous H Urine Bacteria Rare Ur Microscopic Review INDICATED Urine Culture Comments NOT INDICATED PD MEDICAL DECISION MAKING - ED course Complexity details: reviewed results, d/w patient ED course: 934 - Patient resting comfortably, feeling better. Reviewed lab results and urine results including small amount of blood seen in urine. Reviewed CT results including findings of nephrolithiasis. Patient presenting for evaluation of right flank pain. On exam she has no reproducible tenderness. Vital signs are stable. Labs reviewed and CT was obtained. Results reviewed with the patient which demonstrates bilateral nephrolithiasis but no ureter stone.Suspect her symptoms could be musculoskeletal although I was not able to reproduce the pain as the pain does worsen with movements. She felt better with treatment in the emergency department and will continue with supportive care. She is advised on strict return precautions. No chest pain Or thoracic pain to suggest cardiac or pulmonary etiology.Do not suspect epidural abscess or hematoma based on history.No signs of cauda equina. Departure - Departure Disposition: 01 Home, Self Care Clinical Impression: Right flank pain, Nephrolithiasis Blood in urine Qualifiers: Hematuria type: other microscopic Qualified Code(s): R31.29 - Other microscopic hematuria Condition: Stable Instructions: ED Flank Pain Uncertain Cause Follow-Up: Dasha Cummings PA-C [Physician No Access] - Comments: You were seen for pain to your back. Your labs did not show any significant abnormalities. Your urine did have a small amount of blood in it. You do need follow-up with your primary care doctor to ensure that this blood resolves. Your CT scan showed stones inside of your kidneys but this should not be causing your pain until they move outside of your kidneys. If it anytime you develop fever, worsening pain, vomiting, pain with urination or blood in urine You should return to the emergency department for another evaluation. Your flank pain could be related to A muscle strain as it is worse with movement. Please try gbbj-ktl-tymfkzg lidocaine patches and Motrin or Tylenol for your pain.Can also use ice or heat if 1 feels better than the other. You should also try and avoid any activity this weekend that could exacerbate a muscle strain in your back such as lifting, bending Movements. As you do not have a primary care doctor, I did include information for Dasha Cummings PA-C, Who is available for ED follow-ups. Discharge Date/Time: 09/05/21 21:48
[2021-09-05 20:54] LABS: BILIRUBIN,URINE NEGATIVE (NEGATIVE); GLUCOSE, URINE (UA) NEGATIVE (NEGATIVE); KETONES,URINE (UA) 15 mg/dL (NEGATIVE); LEUKOCYTE ESTERASE, URINE TRACE (NEGATIVE); NITRITE,URINE NEGATIVE (NEGATIVE); OCCULT BLOOD,URINE SMALL (NEGATIVE); PH,URINE 6.5 PH (5.0-7.5); PROTEIN,URINE NEGATIVE (NEGATIVE); UROBILINOGEN,URINE 0.2 (NORMAL) E.U./dL (NORMAL)
[2021-09-05 21:09] LABS: CLARITY,URINE CLEAR (CLEAR)
[2021-09-05 21:10] LABS: BACTERIA,URINE Rare /HPF (None Seen); RBC,URINE 0-5 /HPF (0-5); SQUAMOUS EPITHELIAL CELL,UR MANY Squamous (<= Few)
--- NOTE | 2021-09-05 21:18 | CT Report ---
PROCEDURE: Abdomen/Pelvis WO INDICATIONS: R flank pain TECHNIQUE: Noncontrast 5 mm thick sections acquired from the diaphragms to the symphysis. 5 mm coronal and sagi ttal reformats were then performed. For radiation dose reduction, the following was used: automated exposure control, adjustment of mA and/or kV according to patient size. COMPARISON: None. FINDINGS: Image quality: Excellent. ABDOMEN: Lung bases: Lung bases are clear. Heart size is normal. Solid organs: Noncontrast evaluation of the liver demonstrates 2 small hypodense foci within the rig ht hepatic lobe which are too small to characterize but suggestive of small cysts. Gallbladder appear s within normal limits without calcified gallstones. Pancreas is normal in contours. No adrenal nodu les. The spleen is normal in size. Kidneys demonstrate no hydronephrosis. There are bilateral small n onobstructing renal stones. On the right, there are 3-4 small stones with the largest measuring up to 0.2 cm. On the left, there are 5 stones with the largest measuring up to 0.4 cm. The ureters are non distended. Peritoneum and bowel: Small and large bowel loops demonstrate normal wall thickness and caliber. The appendix is normal in appearance without distention or inflammatory changes. There is suggestion of a punctate appendicolith at the base of the appendix. There is colonic diverticulosis without acute di verticulitis. No free fluid or air. Nodes and vessels: No retroperitoneal or mesenteric adenopathy by size criteria. Aorta and inferior vena cava are normal in caliber. Miscellaneous: No ventral hernias. PELVIS: Genitourinary: Bladder wall thickness is normal. Miscellaneous: No inguinal hernias or adenopathy. Bones: No suspicious bony lesions. No vertebral body compression fractures. IMPRESSION: 1. Bilateral nephrolithiasis without evidence of obstructive uropathy. 2. Suggestion of a punctate appendicolith at the base of the appendix without evidence of appendiciti s. 3. Colonic diverticulosis without acute diverticulitis. Reviewed by: James Ambriz MD on 09/05/2021 9:17 PM PDT Approved by: James Ambriz MD on 09/05/2021 9:17 PM PDT Station ID: [id number]
== END 2021-09-05 21:48 | disposition home or self-care (01) ==
LOC: ED 16:39
DX: N20.0 Calculus of kidney (principal); R31.29 Other microscopic hematuria; F17.200 Nicotine dependence, unspecified, uncomplicated
CPT/HCPCS: 36415; 74176; 80053; 81001; 83690; 84703; 85025; 96372; 99282; 99284; Q0162; 81003; 87086